=== PATIENT | male | born 1995 | race African-American/Black ===

== ENCOUNTER 2023-03-31 09:05 | Emergency (ER) | payer BC, OTHER ==
[~2023-03-31] VITALS: Ht 185.4 cm; Wt 81.6 kg
--- NOTE | 2023-03-31 09:20 | NUR ---
REceived pt 27 yrs male came from home c/o paplation and chest pain since 4 am tody
--- NOTE | 2023-03-31 09:45 | NUR ---
blood drow by lab tach
[2023-03-31 10:00] LABS: BASOPHILS % (AUTO) 0.3 % (0.0-2.0); EOSINOPHILS % (AUTO) 0.2 % (0.0-6.0); HEMATOCRIT 43 % (39-51); HEMOGLOBIN 14.4 g/dL (13.5-17.5); LYMPHOCYTES # (AUTO) 1.8 K/uL (0.8-4.8); LYMPHOCYTES % (AUTO) 19.6 % (20.0-44.0); MEAN CORPUSCULAR HGB CONC 33 g/dl (31.0-36.0); MEAN CORPUSCULAR VOLUME 93 fL (80-96); MONOCYTES # (AUTO) 1.4 K/uL (0.1-1.30); MONOCYTES % (AUTO) 15.3 % (2.0-12.0); NEUTROPHILS # (AUTO) 5.8 K/uL (1.8-8.9); NEUTROPHILS % (AUTO) 64.6 % (43.0-81.0); PLATELET COUNT (AUTO) 234 K/uL (150-450); RED BLOOD CELL COUNT(AUTO) 4.68 MIL/uL (4.5-6.0)
[2023-03-31 10:13] LABS: CALCIUM, SERUM 9.2 mg/dL (8.5-10.1); CARBON DIOXIDE 32 mmol/L (21-32); CHLORIDE 105 mmol/L (98-107); CREATININE 1.3 mg/dL (0.6-1.3); GLUCOSE 114 mg/dL (74-106); SODIUM SERUM 143 mmol/L (136-145); UREA NITROGEN, BLOOD 10 mg/dL (7-18)
--- NOTE | 2023-03-31 11:30 | NUR ---
blood drow for uriel block
--- NOTE | 2023-03-31 12:00 | NUR ---
dineses chest pain
--- NOTE | 2023-03-31 12:26 | NUR ---
Patient discharged to home in stable condition. Written and verbal after care instructions given. Patient verbalizes understanding of instruction.
[2023-03-31 12:29] VITALS: BP 101/60
[2023-03-31 14:16] LABS: MONOCYTES % (MANUAL) 11 % (0-11.0)
[2023-03-31 14:23] LABS: EOSINOPHILS % (MANUAL) 1 % (0-4); LYMPHOCYTES % (MANUAL) 27 % (16-48); NEUTROPHILS % (MANUAL) 59 (42-76); REACTIVE LYMPHOCYTES 2 % (0-0)
== END 2023-03-31 12:29 | disposition home or self-care (01) ==
LOC: ER 09:22
DX: I49.3 Ventricular premature depolarization (principal); R07.89 Other chest pain
CPT/HCPCS: 36415; 71045-TC; 80048-TC; 84484-TC; 85025-TC